=== PATIENT | female | born 1950 | race Caucasian/White ===

== ENCOUNTER 2017-07-11 12:33 | Emergency (ER) | payer MEDICARE, OTHER ==
[2017-07-11] MEDS ORDERED: PENICILLIN VK 250 MG TABLET PO STA (13:05)
[2017-07-11] MEDS ORDERED: HYDROcod/ACETAM 5/325 MG TABLET PO STA (13:05)
--- NOTE | 2017-07-11 13:08 | ED Physician Documentation ---
PD HPI HEENT - Stated complaint Stated Complaint: MOUTH PX - Chief complaint Chief Complaint: Heent - History obtained from History obtained from: Patient - History of Present Illness Timing - onset: How many days ago (2) Timing - duration: Days (2) Timing - details: Still present Location: Tooth Associated symptoms: Headache. No: Fever, Facial swelling Similar symptoms before: Diagnosis (She reports history of similar symptoms in the past with tooth abscess, and also with TMJ syndrome.) - Additional information Additional information: The patient is a 67-year-old female who presents with right mandibular pain of 2 days' duration. It started as a toothache in her right lower molar, but the pain is also similar to when she has had flareups of her TMJ in the past. She complains of associated right earache and right-sided headache. She denies fever, cough, or difficulty swallowing. Review of Systems Constitutional: denies: Fever Eyes: denies: Irritation Ears: reports: Ear pain (right ear) Nose: denies: Congestion Throat: denies: Sore throat Cardiac: denies: Chest pain / pressure Respiratory: denies: Dyspnea, Cough GI: denies: Abdominal Pain, Nausea, Vomiting Skin: denies: Rash Musculoskeletal: denies: Neck pain, Extremity swelling Neurologic: reports: Headache. denies: Focal weakness, Numbness PD PAST MEDICAL HISTORY - Past Medical History Cardiovascular: None Endocrine/Autoimmune: None - Past Surgical History Past Surgical History: No - Present Medications Home Medications: Ambulatory Orders Medication Instructions Recorded Confirmed Hydrocodone/Acetaminophen 1 - 2 tab PO Q6H PRN #20 tablet 11/08/14 [Hydrocodon-Acetaminophen 5-325] Sertraline HCl [Zoloft] 150 mg PO DAILY 11/08/14 11/08/14 HYDROcod/ACETAM 5/325 [Chamberlain 5/325] 1 - 2 ea PO Q6H PRN #15 tablet 07/11/17 Penicillin V Potassium 500 mg PO QID #40 tablet 07/11/17 - Allergies Allergies/Adverse Reactions: Allergies Allergy/AdvReac Type Severity Reaction Status Date / Time Sulfa (Sulfonamide Allergy Rash Verified 11/08/14 20:39 Antibiotics) - Social History Does the pt smoke?: No Smoking Status: Never smoker Does the pt drink ETOH?: No Does the pt have substance abuse?: No - Immunizations Immunizations are current?: Yes - POLST Patient has POLST: No PD ED PE NORMAL - Vitals Vital signs reviewed: Yes (initially hypertensive.) - General General: Alert and oriented X 3, Well developed/nourished - HEENT HEENT: Atraumatic, PERRL, EOMI, Ears normal, Pharynx benign, Other (There is tenderness to palpation over the right rearmost lower molar. This is a gold crowned tooth. There is no gingival or facial swelling detected. Oropharynx is nonerythematous without peritonsillar swelling.) - Neck Neck: Supple, no meningeal sign, No adenopathy, No JVD - Cardiac Cardiac: RRR, No murmur - Respiratory Respiratory: No respiratory distress, Clear bilaterally - Derm Derm: No rash - Neuro Neuro: Alert and oriented X 3, No motor deficit, Normal speech Results - Vitals Vitals: Oxygen O2 Source Room air PD MEDICAL DECISION MAKING - ED course Complexity details: considered differential, d/w patient, d/w family ED course: The patient's presentation is most consistent with dental abscess. Her clinical presentation does not suggest meningitis, peritonsillar abscess, or otitis media. Treatment in the emergency department included administration of penicillin 500 mg orally, and Vicodin 1 tablet orally. She is being discharged with prescriptions for both. I discussed with her and her diagnosis, antibiotic treatment and dental follow-up, as well as potentially worrisome signs or symptoms that should prompt reevaluation in the emergency department. Departure - Departure Disposition: 01 Home, Self Care Clinical Impression: Dental abscess Condition: Stable Instructions: ED Abscess Dental Follow-Up: Juan M Moncada MD [Primary Care Provider] - Prescriptions: HYDROcod/ACETAM 5/325 [Chamberlain 5/325] 1 - 2 ea PO Q6H PRN #15 tablet PRN Reason: Pain Penicillin V Potassium 500 mg PO QID #40 tablet Comments: Take penicillin 4 times daily as prescribed. You can use Vicodin as prescribed if needed for pain. Follow up with your dentist as soon as possible. Call to schedule appointment. Return to the emergency department if you develop increasing pain, increasing facial swelling, or otherwise worsening symptoms. Discharge Date/Time: 07/11/17 13:23
[2017-07-11] MEDS ORDERED: PENICILLIN VK 250 MG TABLET PO ONE (13:15)
[2017-07-11] MEDS ORDERED: HYDROcod/ACETAM 5/325 MG TABLET ONE (13:16)
[2017-07-11 13:25] VITALS: BP 146/91
== END 2017-07-11 13:23 | disposition home or self-care (01) ==
LOC: ED 12:33
DX: K04.7 Periapical abscess without sinus (principal)
CPT/HCPCS: 99283; A9270

== ENCOUNTER 2017-10-28 10:47 | Outpatient (CLI) | payer MEDICARE, OTHER ==
[2017-10-28 18:27] LABS: BASOPHILS # (AUTO) 0.1 10^3/uL (0.0-0.1); BASOPHILS % (AUTO) 0.7 %; EOSINOPHILS # (AUTO) 0.3 10^3/uL (0.0-0.7); EOSINOPHILS % (AUTO) 3.6 %; HCT - HEMATOCRIT 39.3 % (37.0-47.0); HGB - HEMOGLOBIN 12.8 g/dL (12.0-16.0); LYMPHOCYTES # (AUTO) 2.4 10^3/uL (1.5-3.5); MEAN CORPUSCULAR HEMOGLOBIN 28.6 pg (27.0-31.0); MEAN CORPUSCULAR HGB CONC 32.5 g/dL (32.0-36.0); MEAN PLATELET VOLUME 7.6 fL (7.9-10.8); MONOCYTES # (AUTO) 0.7 10^3/uL (0.0-1.0); MONOCYTES % (AUTO) 8.2 %; NEUTROPHILS % (AUTO) 59.5 %; RED BLOOD COUNT 4.46 10^6/uL (4.20-5.40); RED CELL DISTRIBUTION WIDTH 13.7 % (12.0-15.0); UNCORRECTED WHITE BLOOD COUNT 8.4 x10^3/uL; WHITE BLOOD COUNT 8.4 x10^3/uL (4.8-10.8)
[2017-10-28 19:00] LABS: ALBUMIN/GLOBULIN RATIO 1.1 (1.0-2.2); BILIRUBIN,TOTAL 0.5 mg/dL (0.2-1.0); BUN - BLOOD UREA NITROGEN 17 mg/dL (6-20); CALCIUM 9.3 mg/dL (8.5-10.3); CARBON DIOXIDE - CO2 25 mmol/L (21-32); CHLORIDE 107 mmol/L (101-111); CHOL/HDL RATIO 3.4 (<4.4); CHOLESTEROL 203 mg/dL; CREATININE 0.7 mg/dL (0.4-1.0); GFR - MDRD 84 (>89); GLUCOSE 91 mg/dL (70-100); HDL CHOLESTEROL 59 mg/dL; LDL/HDL RATIO 2.1 (<4.4); POTASSIUM 4.5 mmol/L (3.5-5.0); SODIUM 138 mmol/L (135-145); TRIGLYCERIDES 105 mg/dL; VLDL CHOLESTEROL 21 mg/dL
== END 2017-10-28 10:48 | disposition home or self-care (01) ==
LOC: LAB.F 10:47
PROVIDERS: ATTEND Family Medicine
DX: J30.9 Allergic rhinitis, unspecified (principal); E66.9 Obesity, unspecified; F32.9 Major depressive disorder, single episode, unspecified; G47.33 Obstructive sleep apnea (adult) (pediatric)
CPT/HCPCS: 36415; 80053; 80061; 84443; 85025

== ENCOUNTER 2017-11-18 10:15 | Outpatient (CLI) | payer MEDICARE, OTHER ==
--- NOTE | 2017-11-21 08:54 | Mammography Report ---
DATE OF SERVICE: 11/18/2017 DIGITAL BILATERAL SCREENING MAMMOGRAM: 11/19/2017 COMPARISON: Mammogram 06/23/2013. INDICATION: Screening mammography. TECHNIQUE: Bilateral MLO and CC breast views. FINDINGS: There are scattered fibroglandular densities. No dominant mass, architectural distortion, or concerning cluster of microcalcifications is seen. IMPRESSION: BIRADS category: 1, negative. RECOMMENDATIONS: Annual screening mammogram. STANDARD QUALIFYING STATEMENTS 1. This examination was reviewed with the aid of Computed-Aided Detection (CAD) . 2. A negative or benign imaging report should not delay biopsy if clinically suspicious findings are present. Consider surgical consultation if warranted. More than 5% of cancers are not identified by imaging. 3. Dense breasts may obscure an underlying neoplasm. TD: 11/20/2017 18:50 MTDD
== END 2017-11-18 10:16 | disposition home or self-care (01) ==
LOC: DI.S 10:15
PROVIDERS: ATTEND Family Medicine
DX: Z12.31 Encounter for screening mammogram for malignant neoplasm of breast (principal)
CPT/HCPCS: 77067

== ENCOUNTER 2017-11-19 14:22 | Outpatient (CLI) | payer MEDICARE, OTHER ==
--- NOTE | 2017-11-20 15:55 | DEXA Report ---
DEXA SCAN: 11/19/2017 INDICATION: Screening for bone mineral density. TECHNIQUE: Dual energy x-ray absorptiometry (DXA) was performed on a Pressy system. Regions measured are the AP spine, femoral neck, and, if needed, forearm. COMPARISON: None. In accordance with the International Society for Clinical Densitometry (ISCD) guidelines, data from previous exams may be reanalyzed using current recommendations and techniques. This is done to allow a more accurate basis for comparison with the current study. FINDINGS Data for the lumbar spine is as follows: REGION BMD (g/cm/cm) T-SCORE Z-SCORE L1 1.233 0.9 1.3 L2 1.267 0.6 1.0 L3 1.229 0.2 0.7 L4 1.232 0.3 0.7 TOTAL L1-L4 1.240 0.5 0.9 Lumbar spine bone mineral density measures 1.240 g/cm2. This corresponds to a T- score of 0.5 and a Z-score of 0.9. Findings are consistent with normal bone mineral density. NOTE: All evaluable vertebrae are used for classification. Data for the hip is as follows: REGION BMD (g/cm/cm) T-SCORE Z-SCORE Neck 0.855 -1.3 -0.6 TOTAL 1.012 0.0 0.4 Femoral neck density measures 0.855 g/cm2. T-score is -1.3 which corresponds to a Z-score of -0.6. Findings are consistent with osteopenia. NOTE: The femoral neck or total proximal femur, whichever is lowest, is used for classification. IMPRESSION 1. FEMORAL NECK: T-SCORE OF -1.3 CONSISTENT WITH OSTEOPENIA. 2. LUMBAR SPINE: T-SCORE OF 0.5 CONSISTENT WITH NORMAL BONE MINERAL DENSITY. THE WHO CLASSIFICATION BASED ON THE INTERNATIONAL REFERENCE STANDARD IS OSTEOPENIA. THE FRACTURE RISK IS INCREASED. RECOMMENDATION: Patients with diagnosis of osteoporosis or osteopenia should have regular bone mineral density assessment. For those eligible for Medicare, routine testing is allowed once every 2 years. Testing frequency can be increased for patients who have rapidly progressing disease or for those who are receiving medical therapy to restore bone mass. COMMENT: World Health Organization (WHO) definitions for osteoporosis and osteopenia: NORMAL BMD: T-score at 1.0 or higher, fracture risk is low. OSTEOPENIA BMD: T-score between 1.0 and -2.5, fracture risk is increased. OSTEOPOROSIS BMD: T-score at 2.5 or lower, fracture risk high. National Osteoporosis Foundation recommends: 1. Obtain adequate dietary calcium (at least 1200 mg per day) and vitamin D (400 -800 international units per day). 2. Participate, as appropriate, in regular weightbearing and muscle- strengthening exercise. 3. Avoid tobacco use and reduce alcohol and caffeine intake. 4. For more detailed information see the website at www.NOF.org. TD: 11/19/2017 17:16 QUENTIN
== END 2017-11-19 14:23 | disposition home or self-care (01) ==
LOC: DI 14:22
PROVIDERS: ATTEND Family Medicine
DX: M85.88 Other specified disorders of bone density and structure, other site (principal)
CPT/HCPCS: 77080

== ENCOUNTER 2018-12-05 15:55 | Emergency (ER) | payer MEDICARE, OTHER ==
[2018-12-05 16:07] VITALS: BP 116/74
--- NOTE | 2018-12-05 16:22 | ED Physician Documentation ---
PD HPI BACK PAIN - Stated complaint Stated Complaint: BACK PX - Chief complaint Chief Complaint: Back Pain - History obtained from History obtained from: Patient - History of Present Illness Timing - onset: How many weeks ago (2-3) Timing - duration: Weeks (2-3) Timing - details: Gradual onset, Still present Location: Lower, Right Quality: Pain, Spasm, Aching Associated symptoms: No: Fever, Weakness, Numbness, Incontinent of urine Worsened by: Movement, Twisting Contributing factors: No: Lifting, Twisting, Trauma Similar symptoms before: Diagnosis, Has not had sx before Recently seen: Not recently seen Review of Systems Constitutional: denies: Fever, Chills, Myalgias Nose: denies: Rhinorrhea / runny nose, Congestion Throat: denies: Sore throat Respiratory: denies: Cough GI: denies: Abdominal Pain, Nausea, Vomiting, Diarrhea, Bloody / black stool : denies: Dysuria, Frequency, Incontinent, Hematuria Skin: denies: Rash Musculoskeletal: reports: Back pain. denies: Extremity pain Neurologic: denies: Generalized weakness, Focal weakness, Numbness PD PAST MEDICAL HISTORY - Past Medical History Cardiovascular: None Endocrine/Autoimmune: None - Past Surgical History Past Surgical History: No - Present Medications Home Medications: Ambulatory Orders Medication Instructions Recorded Confirmed Sertraline HCl [Zoloft] 150 mg PO DAILY 11/08/14 12/05/18 Acetaminophen/Cod 300/30 [Tylenol 1 each PO Q4-6H 12/05/18 12/05/18 #3] Dexamethasone [Decadron] 4 mg PO DAILY #7 tablet 12/05/18 Diazepam [Valium] 2 mg PO DAILY PM 12/05/18 12/05/18 Docusate Sodium 100 mg PO DAILY #30 capsule 12/05/18 Fluticasone [Flonase] 1 sprays BRANDI DAILY 12/05/18 12/05/18 Naproxen 375 mg PO BID #20 tablet 12/05/18 Oxycodone HCl/Acetaminophen 1 each PO Q6H PRN #20 tablet 12/05/18 [Percocet 5-325 mg Tablet] diazePAM [Diazepam] 5 mg PO TID PRN #20 tablet 12/05/18 - Allergies Allergies/Adverse Reactions: Allergies Allergy/AdvReac Type Severity Reaction Status Date / Time Sulfa (Sulfonamide Allergy Rash Verified 12/05/18 16:07 Antibiotics) - Social History Does the pt smoke?: No Smoking Status: Never smoker Does the pt drink ETOH?: No Does the pt have substance abuse?: No - Immunizations Immunizations are current?: Yes - POLST Patient has POLST: No PD ED PE NORMAL - Vitals Vital signs reviewed: Yes - General General: Alert and oriented X 3, Well developed/nourished, Other (appears uncomfortable with ROM of the back and bending. ) - Neck Neck: Supple, no meningeal sign, No adenopathy - Cardiac Cardiac: RRR, No murmur - Respiratory Respiratory: Clear bilaterally - Abdomen Abdomen: Soft, Non tender - Back Back: No CVA TTP, Other (tender not in the spine itself, but in right lower lumbar area and at the top of the right SI joint. No redness nor warmth. ) - Derm Derm: Normal color, Warm and dry, No rash - Neuro Neuro: Alert and oriented X 3, No motor deficit, No sensory deficit, Other (normal reflexes at knees) Eye Opening: Spontaneous Motor: Obeys Commands Verbal: Oriented GCS Score: 15 Results - Vitals Vitals: Oxygen O2 Source Room air PD MEDICAL DECISION MAKING - ED course Complexity details: considered differential (tender lower back muscles but also very tender matt the top of the SI joint.), d/w patient Departure - Departure Disposition: 01 Home, Self Care Clinical Impression: Sacroiliitis Low back pain Qualifiers: Chronicity: acute Back pain laterality: right Sciatica presence: with sciatica Sciatica laterality: sciatica of right side Qualified Code(s): M54.41 - Lumbago with sciatica, right side Condition: Stable Record reviewed to determine appropriate education?: Yes Instructions: ED Sciatica Follow-Up: Juan M Moncada MD [Primary Care Provider] - Prescriptions: Dexamethasone [Decadron] 4 mg PO DAILY #7 tablet diazePAM [Diazepam] 5 mg PO TID PRN #20 tablet PRN Reason: Spasms Docusate Sodium 100 mg PO DAILY #30 capsule Naproxen 375 mg PO BID #20 tablet Oxycodone HCl/Acetaminophen [Percocet 5-325 mg Tablet] 1 each PO Q6H PRN #20 tablet PRN Reason: pain Comments: Gentle range of motion and heat for the low back. Try to initiate physical therapy with the order I wrote. Use Decadron steroid daily for the next week. Diazepam as needed for muscle spasms and stiffness. Add pain medicine if needed. Follow-up with your primary care later this coming week. Discharge Date/Time: 12/05/18 17:57
[2018-12-05] MEDS ORDERED: DOCUSATE SODIUM 250 MG CAPSULE PO STA (16:57)
[2018-12-05] MEDS ORDERED: KETOROLAC 60 MG/2 ML VIAL IM STA (16:57)
[2018-12-05] MEDS ORDERED: oxyCODONE 5 MG TABLET PO STA (16:57)
[2018-12-05] MEDS ORDERED: TRIAMCINOLONE 40 MG/ML VIAL IM STA (16:57)
== END 2018-12-05 17:57 | disposition home or self-care (01) ==
LOC: ED 15:55
DX: M46.1 Sacroiliitis, not elsewhere classified (principal); M54.41 Lumbago with sciatica, right side
CPT/HCPCS: 96372; 99283; A9270